=== PATIENT | female | born 1970 | race Caucasian/White ===

== ENCOUNTER → 2017-07-21 | Outpatient (CLI) | payer OTHER ==
[~2017-07-21] VITALS: Ht 162.6 cm; Wt 86.3 kg
[~2017-07-21] MED LIST: ACTIGALL300 MG PO; ALEVE220 MG PO; BENEFIBER1 G1 PO; CARAFATE 11 GM/10 M1; CIPROFLOXACIN500 M1 PO; COLACE100 MG PO; COMPRO25 MG RC; CREON DR 24,001 EACH PO; CYMBALTA30 MG PO; CYMBALTA60 MG PO; DICYCLOMINE HCL20 MG PO; DONNATAL EXTEN1 EACH PO; HYDROCODON-ACE1 EAC5 PO; HYDROCODON-ACE1 EAC7 PO; HYDROCODONE-AP1 EAC6 PO; IRON PO; LINZESS145 MCG PO; LIORESAL 10 MG10 MG PO; MULTIVITAMINS PO; NEXIUM40 MG PO; NORTRIPTYLINE H25 M3 PO; NORTRIPTYLINE H50 M3 PO; NORTRIPTYLINE H50 MG PO; NORTRIPTYLINE H75 M1 PO; OMEPRAZOLE40 MG PO; OXYCODONE HCL5 M1 PO; POTASSIUM GLUC500 MG PO; POTASSIUM GLUCONATE PO; PREVACID 30MG C30 M1 PO; PROMETHAZINE12.5 M1 PO; PROMETHAZINE12.5 M2 RE; RANITIDINE 150150 MG PO; RANITIDINE HCL300 M1 PO; REGLAN 10 MG TA10 MG PO; TRAMADOL 50 MG50 MG PO; TRAZODONE HCL100 MG PO; ZANTAC 150MG T150 MG PO; ZOFRAN8 MG PO; [UNRECOGNIZED DRUG - OTHER] MC
--- NOTE | ~2017-07-21 | HPC ---
[facility] [place] [address] PAIN MANAGEMENT CONSULTATION Name: STANLEY PADILLA Room #: REG [facility] Darrick.#: [id number] Admission: 07/21/17 Attend Phys: Amaury Breaux MD Discharge: Date of : 70 Report #: [id number] THIS REPORT FOR: //name// CC: Chucky Breaux DATE OF SERVICE: 07/21/2017 Followup visit for medication management of chronic abdominal pain with pancreatitis. The patient takes tramadol 50 mg 4 times daily for pain. She says her primary care physician will no longer prescribe it because it is an opioid. Tramadol as the Schedule III opioid does not even calculate on a morphine milligram equivalency scale. It is potentially a drug of misuse and abuse; however, the patient has been taking it cautiously and carefully and provides relief for her abdominal pain and also for low back pain that she has intermittently with radiculopathy. She denies any particular side effects from this. She has recently been in [place] where she was under treatment for pancreatitis. She had 2 stents placed. Typically after ERCP, pain is aggravated and it has been in the patient's condition. I reviewed with her medication and its actions. I talked about safeguarding medication carefully and using it under instructions provided by our clinic. In reviewing her previous prescriptions on drug monitoring program, it states that she was given 2 prescriptions for hydrocodone by the physicians in [place]. The number of pills, however, was small, no more than 15 to 20 following the procedure. They recommended that she be seen back in the clinic by her pain specialists. PHYSICAL EXAMINATION: GENERAL: She is pleasant, alert and oriented. VITAL SIGNS: Her BMI is 32.6 and she has lost weight since I last saw her. Her blood pressure is 133/89, heart rate 94. ABDOMEN: She has tenderness across her abdomen. IMPRESSION: 1. Chronic pancreatitis. 2. Management of tramadol under terms of an agreement. [address] [address] PAIN MANAGEMENT CONSULTATION Name: STANLEY PADILLA Room #: REG [facility].#: [id number] Admission: 07/21/17 Attend Phys: Amaury Breaux MD Discharge: Date of : 70 Report #: [id number] Follow up in the pain clinic in one month. Prescription was written for 120 tablets. By: [id number] Amaury Breaux MD /nt
[2017-07-21 13:06] VITALS: BP 133/89
== END ==
LOC: PAIN 06:57
DX: K86.1 Other chronic pancreatitis (principal); Z79.899 Other long term (current) drug therapy

== ENCOUNTER → 2018-04-17 | Outpatient (CLI) | payer OTHER ==
[~2018-04-17] VITALS: Ht 162.6 cm; Wt 86.5 kg
[~2018-04-17] MED LIST changes: +KEFLEX500 M1 PO
--- NOTE | ~2018-04-17 | HPC ---
[facility] [place] [address] PAIN MANAGEMENT CONSULTATION Name: STANLEY PADILLA Room #: REG [facility] M.R.#: [id number] Admission: 04/17/18 ������������������ Attend Phys: Amaury Breaux MD Discharge: ������������������ Date of : 70 Report #: [id number] THIS REPORT FOR: //name// CC: Chucky Breaux DATE OF SERVICE: 04/17/2018 Followup visit for chronic abdominal pain with recurring pancreatitis. HISTORY OF PRESENT ILLNESS: The patient is here today in followup for medication management of her chronic abdominal pain. She has had a recent flareup. She does not know if it was dietary or other stress that triggered her episode, but it was severe enough to take her to the hospital for 3 nights. While in the hospital, she was treated with IV morphine, which she said was helpful, although it is listed as an allergy on her chart. She tolerated the treatment and was able to be discharged and is here today to renew her tramadol, which she takes on a chronic basis for management. Her tramadol is 50 mg tablets taken 4 times daily, without side effects. She has an opioid agreement; we reviewed the terms of that agreement. She will carefully safeguard her medication. She denies side effects. Tramadol may actually slower her stool just a bit and has a favorable benefit in that regard. PQRS: PQRS is reviewed. She has no history of osteoarthritis. Her pain intensity is 5/10. She is not a fall risk, but she did fall a month ago on the ice, sustaining some bruising, but no serious injuries; she has recovered. She is on no blood thinners nor does she take medication for hypertension. She is on an opioid agreement and we have completed an opioid risk tool, which shows she is at low risk for addiction. She denies use of tobacco or alcohol. PHYSICAL EXAMINATION: VITAL SIGNS: She is 5 feet 4 inches, 190 pounds. Blood pressure is 130/96, heart rate is 80. BMI is 32.7. ABDOMEN: Mildly tender. Bowel sounds are present. IMPRESSION: 1. Chronic abdominal pain with recurrent chronic pancreatitis. 2. Management of tramadol under terms of written opioid agreement. PLAN: I have renewed her medication for 3 months. Importance of safeguarding all medications was reviewed and discussed. [address] [address] PAIN MANAGEMENT CONSULTATION Name: STANLEY PADILLA [id number] Admission: 04/17/18 ������������������ Attend Phys: Amaury Breaux MD Discharge: ������������������ Date of : 70 Report #: [id number] A followup visit is scheduled for her in 3 months. ��������������������������������������������� ���������������������������������������� By: ��������������������������������������������� [id number] [id number] Amaury Breaux MD /nt
[2018-04-17 09:07] VITALS: BP 130/96
--- NOTE | 2018-04-17 09:07 | NUR ---
Pain Clinic Assessment: 1. History of Osteoarthritis: Not Applicable History of Rheumatoid Arthritis: Not Applicable 2. Height: 5 ft. 4 in. 162.6 cm. Weight: 190.8 lb. oz. 86.546 kg. Patient's BMI: 32.7 3. Vital Signs: BP: 130/96 Pulse: 80 Resp: 18 Temp: 02 Sat: 99 ECG Mon: 4. Pain Intensity: 5 5. Fall Risk: Dizziness: N Needs help standing or walking: N Fallen in the last 3 months: Y Fall risk comments: FELL ON ICE A FEW MONTHS AGO 6. Patient on Blood Thinner: None 7. History of Hypertension: N 8. Opioid Therapy greater than 6 weeks: Y Opiate Contract Signed: 09/13/11 9. Risk Assessment Tool Provided: 0-LOW 10. Functional Assessment Tool: 11. Recreational Drug Use: Never Drug Type: Tobacco Use: Never Smoker Tobacco Type: Amount or Packs/day: How Many Years: Alcohol Use: No Frequency: Quant:
== END ==
LOC: PAIN 07:05
DX: R10.9 Unspecified abdominal pain (principal); G89.29 Other chronic pain; K86.1 Other chronic pancreatitis; Z79.899 Other long term (current) drug therapy

== ENCOUNTER → 2018-07-25 | Outpatient (CLI) | payer OTHER ==
[~2018-07-25] VITALS: Ht 162.6 cm; Wt 88.9 kg
[2018-07-25 08:05] VITALS: BP 141/97
--- NOTE | 2018-07-25 08:08 | NUR ---
Pain Clinic Assessment: 1. History of Osteoarthritis: Not Applicable History of Rheumatoid Arthritis: Not Applicable 2. Height: 5 ft. 4 in. 162.6 cm. Weight: 196.0 lb. oz. 88.905 kg. Patient's BMI: 33.6 3. Vital Signs: BP: 141/97 Pulse: 93 Resp: 16 Temp: 02 Sat: 98 ECG Mon: 4. Pain Intensity: 3 5. Fall Risk: Dizziness: N Needs help standing or walking: N Fallen in the last 3 months: N Fall risk comments: FELL ON ICE A FEW MONTHS AGO 6. Patient on Blood Thinner: None 7. History of Hypertension: N 8. Opioid Therapy greater than 6 weeks: Y Opiate Contract Signed: 09/13/11 9. Risk Assessment Tool Provided: 0-LOW 10. Functional Assessment Tool: 11. Recreational Drug Use: Never Drug Type: Tobacco Use: Never Smoker Tobacco Type: Amount or Packs/day: How Many Years: Alcohol Use: No Frequency: Quant:
--- NOTE | 2018-07-25 14:49 | HPC ---
[facility] [address] [place] [address] PAIN MANAGEMENT CONSULTATION Name: STANLEY PADILLA Room #: REG [facility] Darrick.#: [id number] Admission: 07/25/18 ������������������ Attend Phys: Olive Burnett Discharge: ������������������ Date of : 70 Report #: [id number] THIS REPORT FOR: //name// CC: Chucky Burnett DATE OF SERVICE: 07/25/2018 CHIEF COMPLAINT: Chronic abdominal pain with recurrent pancreatitis. HISTORY OF PRESENT ILLNESS: This is a very pleasant 47-year-old female who returns for medication management for her chronic abdominal pain. She tells me she has not had a flare in the past couple of weeks. She has been watching her diet very carefully. Some days, she does need to take more of her tramadol depending on flareups but she is able to get by with 2 usually but on flareup days, she needs at least 4 or more tramadol a day. She tells me that her pain scores of 3/10 today, mostly an achy burning in her abdomen on the right side that does radiate towards her back. Certain foods of course aggravated and bending over and the medication and stretching are very helpful. The patient also complains of significant heartburn and throat burning sensation today. She tells me that she is going to go see her primary care doctor. She feels like this has been getting worse despite taking omeprazole and Zantac on a daily basis. She feels that this also makes her eat less foods that do cause flareups because she has been having this ongoing issue. ALLERGIES: DILAUDID, MORPHINE, TOPAMAX and LEVAQUIN. CURRENT MEDICATIONS: Tramadol 50 mg p.r.n., trazodone 100 mg, omeprazole 40 mg, Zantac 150 mg b.i.d., potassium gluconate 500 mg daily, Linzess 145 mcg daily, Cymbalta 30 mg daily, naproxen p.r.n., multivitamin and Zofran p.r.n. PQRS: She has no history of osteoarthritis or rheumatoid arthritis. Height is 5 feet 4 inches, weight is 190 and BMI is 32. Vital signs: Blood pressure 141/97, pulse is 93, respirations 16 and oxygen sat is 98. Pain score is 3/10. Fall risk. Denies dizziness, does not need help walking or standing and has not fallen in the last 3 months. She is not on any blood thinners or hypertension medicines. Opioid therapy is greater than 6 weeks; therefore, an opioid signed contract is on the chart. Her risk assessment tool is low. Her functional assessment is 45/70. Recreational drug use, she denies. She is not a smoker and does not drink alcohol. We did check the prescription monitoring system. The patient is filling appropriately for her medications. There is a recent drug screen on the chart as well that is appropriate. [address] [address] PAIN MANAGEMENT CONSULTATION Name: STANLEY PADILLA Room #: REG [facility] John#: [id number] Admission: 07/25/18 ������������������ Attend Phys: Olive Burnett Discharge: ������������������ Date of : 70 Report #: [id number] PHYSICAL EXAMINATION: GENERAL: This is a well-developed, well-nourished 47-year-old female who appears her stated age. Placing her pain score today at 3/10. HEENT: Normocephalic and atraumatic. Extraocular muscles are intact. Mucous membranes are moist. Hearing is adequate. ABDOMEN: Mildly tender. Bowel sounds present. IMPRESSION: 1. Chronic abdominal pain with recurrent chronic pancreatitis. 2. Management of tramadol under terms of written opioid agreement. We reviewed the fact that opiate medications are being used to provide analgesia adequate to support activities of daily living, not attempting to achieve a specific pain score on the 0-10 Visual Analog Scale. The current opiate medications are providing sufficient analgesia to allow the patient to participate in activities of daily living. The patient is not exhibiting any aberrant behavior suggestive of drug diversion. The patient is not having any adverse reactions to medications. The patient is not suffering from daytime somnolence or mental acuity changes. The patient is managing opiate-induced constipation with appropriate mkfj-xci-ztkiozy agents and dietary considerations. The patient was counseled on concern for caution with operating a motor vehicle while using opiate medications. A physical exam was performed and the patient's functional status was evaluated. All patients with back pain were advised against the bed rest greater than 4 days and were advised to return to normal activities. Pain score assessment was noted and the treatment plan was reviewed with the patient. All current medications, both prescribed and OTC were reviewed and reconciled on the electronic medical record. Tobacco screening was accomplished and smoking cessation was advised when indicated. BMI was noted and diet/exercise modification was recommended for all patients following outside normal parameters. I reviewed with the patient today their responsibilities to safeguard prescription medications, reviewed their responsibility to utilize medications only as prescribed by the physician. They are to seek and receive pain medications only from 1 physician group ( [facility]). They are to use 1 pharmacy and keep the clinic informed if they change pharmacies. Their responsibilities include making followup visits in a timely fashion and to avoid abrupt discontinuation of medication usage. Their responsibilities further include bringing their medications (bottles from the pharmacy with residual pills) to the visit for possible confirmation of pill counts and the patient understands it is their responsibility to submit to random drug screens to ensure both that the medications prescribed are present, and that no other controlled substances are present. All prescriptions provided today were generated electronically. [facility] [address] [place] [address] PAIN MANAGEMENT CONSULTATION Name: STANLEY PADILLA Room #: REG [facility].#: [id number] Admission: 07/25/18 ������������������ Attend Phys: Olive Burnett Discharge: ������������������ Date of : 70 Report #: [id number] PLAN: 1. We discussed treatment options with the patient today. Refills of her tramadol 50 mg #120 with 2 additional refills were given. 2. We discussed the patient's blood pressure, it is elevated again today, 141/97 and the last few times she has been here, it has been elevated. I encouraged her that she was seeing her primary care doctor this afternoon to discuss her blood pressure. She tells me it is always high when she is in pain, though her pain score is low today and it continues to be high. I told her I do not want this to be an ongoing problem that ends up being too high that has potential for worse things as an example of stroke, so I encouraged her to talk to her primary care doctor today. 3. The patient is seen in collaboration today with Dr. Marcelo Gilliland. ��������������������������������������������� <ELECTRONICALLY SIGNED> ���������������������������������������� By: Olive Burnett ��������������������������������������������� 07/25/18 1449 [id number] Olive Burnett /becky
== END ==
LOC: PAIN 06:33
DX: K86.1 Other chronic pancreatitis (principal); Z79.899 Other long term (current) drug therapy

== ENCOUNTER → 2018-11-02 | Outpatient (CLI) | payer OTHER ==
[~2018-11-02] VITALS: Ht 162.6 cm; Wt 87.3 kg
[2018-11-02 09:36] VITALS: BP 122/91
--- NOTE | 2018-11-02 09:51 | NUR ---
Pain Clinic Assessment: 1. History of Osteoarthritis: Not Applicable History of Rheumatoid Arthritis: Not Applicable 2. Height: 5 ft. 4 in. 162.6 cm. Weight: 192.4 lb. oz. 87.272 kg. Patient's BMI: 33.0 3. Vital Signs: BP: 122/91 Pulse: 77 Resp: 14 Temp: 02 Sat: 97 ECG Mon: 4. Pain Intensity: 4 5. Fall Risk: Dizziness: N Needs help standing or walking: N Fallen in the last 3 months: N Fall risk comments: FELL ON ICE A FEW MONTHS AGO 6. Patient on Blood Thinner: None 7. History of Hypertension: N 8. Opioid Therapy greater than 6 weeks: Y Opiate Contract Signed: 09/13/11 9. Risk Assessment Tool Provided: 0-LOW 10. Functional Assessment Tool: 11. Recreational Drug Use: Never Drug Type: Tobacco Use: Never Smoker Tobacco Type: Amount or Packs/day: How Many Years: Alcohol Use: No Frequency: Quant:
--- NOTE | 2018-11-07 11:30 | HPC ---
[facility] [place] [address] PAIN MANAGEMENT CONSULTATION Name: STANLEY PADILLA Room #: REG [facility] M.Marielos.#: [id number] Admission: 11/02/18 ������������������ Attend Phys: Olive Burnett Discharge: ������������������ Date of : 70 Report #: [id number] THIS REPORT FOR: //name// CC: Chucky Burnett DATE OF SERVICE: 11/02/2018 CHIEF COMPLAINT: Chronic abdominal pain with recurrent pancreatitis. HISTORY OF PRESENT ILLNESS: This is a very pleasant 48-year-old female who returns to the pain clinic today for refills of her medication. She does report that she was recently hospitalized for a colon infection. She was discharged on Tuesday, her pancreatitis did flare when she was in the hospital. She continues to have some ongoing pain, rating at a 4/10 today due to this recent flare, pain is located across her entire abdomen and radiates all the way into her back. She is slowly resuming her normal diet, but eating still does makes her pain worse as well as bending. She has been taking her tramadol for her pain and finds this very beneficial. The patient does tell me that she does have problems with constipation. She has irritable bowel as well as her pancreatitis which affect her bowel pattern. She takes Linzess, MiraLax and stool softeners. ALLERGIES: DILAUDID, MORPHINE, TOPAMAX, AND LEVAQUIN. CURRENT LIST OF MEDICATIONS: Tramadol 50 mg up to 4 times a day p.r.n., trazodone 100 mg at bedtime, omeprazole 40 mg daily, Zantac 150 mg daily, potassium, Linzess, Cymbalta, naproxen, multivitamin and Zofran. PQRS: 1. She does not have a history of osteoarthritis or rheumatoid arthritis. 2. Height is 5 feet 4 inches, weight is 192, BMI is 33. 3. Vital signs: 122/91, pulse is 77, respirations 14, oxygen sat is 97. 4. Pain score is 4/10. 5. Denies dizziness. Does not need help walking or standing, has not fallen in the last 3 months. 6. The patient is not on any blood thinners or hypertension medicines. 7. Opioid therapy is greater than 6 weeks; therefore, an opiate signed contract is on the chart. 8. Risk assessment tool is low. Functional assessment is 45/70. 9. Recreational drug use, she denies. She is not a smoker and does not drink alcohol. According to the prescription monitoring system, the patient is filling appropriately for her medications, filling them in a timely fashion. She is due for those medications today. There is a recent drug screen [place] [address] PAIN MANAGEMENT CONSULTATION Name: STANLEY PADILLA Room #: REG [facility] John#: [id number] Admission: 11/02/18 ������������������ Attend Phys: Olive Burnett Discharge: ������������������ Date of : 70 Report #: [id number] will recheck that in the next visit as well, as it will be greater than a year at that time. IMPRESSION: 1. Chronic abdominal pain with recurrent pancreatitis. 2. Management of tramadol under written opioid agreement. We reviewed the fact that opiate medications are being used to provide analgesia adequate to support activities of daily living, not attempting to achieve a specific pain score on the 0-10 Visual Analog Scale. The current opiate medications are providing sufficient analgesia to allow the patient to participate in activities of daily living. The patient is not exhibiting any aberrant behavior suggestive of drug diversion. The patient is not having any adverse reactions to medications. The patient is not suffering from daytime somnolence or mental acuity changes. The patient is managing opiate-induced constipation with appropriate luuh-dxu-cvobmei agents and dietary considerations. The patient was counseled on concern for caution with operating a motor vehicle while using opiate medications. A physical exam was performed and the patient's functional status was evaluated. All patients with back pain were advised against the bed rest greater than 4 days and were advised to return to normal activities. Pain score assessment was noted and the treatment plan was reviewed with the patient. All current medications, both prescribed and OTC were reviewed and reconciled on the electronic medical record. Tobacco screening was accomplished and smoking cessation was advised when indicated. BMI was noted and diet/exercise modification was recommended for all patients following outside normal parameters. I reviewed with the patient today their responsibilities to safeguard prescription medications, reviewed their responsibility to utilize medications only as prescribed by the physician. They are to seek and receive pain medications only from 1 physician group ( [facility]). They are to use 1 pharmacy and keep the clinic informed if they change pharmacies. Their responsibilities include making followup visits in a timely fashion and to avoid abrupt discontinuation of medication usage. Their responsibilities further include bringing their medications (bottles from the pharmacy with residual pills) to the visit for possible confirmation of pill counts and the patient understands it is their responsibility to submit to random drug screens to ensure both that the medications prescribed are present, and that no other controlled substances are present. All prescriptions provided today were generated electronically. PLAN: 1. We discussed treatment options with the patient today. The patient is doing well on her tramadol and would like refills, scripts given for 50 mg #120 with 2 [facility] [address] [place] [address] PAIN MANAGEMENT CONSULTATION Name: STANLEY PADILLA Room #: REG [facility].#: [id number] Admission: 11/02/18 ������������������ Attend Phys: Olive Burnett Discharge: ������������������ Date of : 70 Report #: [id number] additional refills. This is a total of 3 months of medications. 2. We did discuss her ongoing pancreatitis and recent colon issues. She reports she is having a colonoscopy soon and then will be traveling to [place] for an ultrasound of her pancreas. She is waiting to have all of her studies here and the doctors speak with those specialists before she schedules her appointment. 3. The patient is seen by Dr. Amaury Breaux, who collaborated care. She will return in 3 months for an office visit. ��������������������������������������������� <ELECTRONICALLY SIGNED> ���������������������������������������� By: Olive Burnett ��������������������������������������������� 11/07/18 1130 1152 [id number] Olive Burnett /becky
== END ==
LOC: PAIN 06:47
DX: R10.9 Unspecified abdominal pain (principal); G89.29 Other chronic pain; K86.1 Other chronic pancreatitis; Z88.8 Allergy status to other drugs, medicaments and biological substances; Z79.899 Other long term (current) drug therapy

== ENCOUNTER → 2019-02-01 | Outpatient (CLI) | payer OTHER ==
[~2019-02-01] VITALS: Ht 162.6 cm; Wt 86.6 kg
[2019-02-01 10:14] VITALS: BP 131/93
--- NOTE | 2019-02-01 10:30 | NUR ---
Pain Clinic Assessment: 1. History of Osteoarthritis: Not Applicable History of Rheumatoid Arthritis: Not Applicable 2. Height: 5 ft. 4 in. 162.6 cm. Weight: 191.0 lb. oz. 86.637 kg. Patient's BMI: 32.8 3. Vital Signs: BP: 131/93 Pulse: 74 Resp: 14 Temp: 02 Sat: 97 ECG Mon: 4. Pain Intensity: 4 5. Fall Risk: Dizziness: N Needs help standing or walking: N Fallen in the last 3 months: N Fall risk comments: FELL ON ICE A FEW MONTHS AGO 6. Patient on Blood Thinner: None 7. History of Hypertension: N 8. Opioid Therapy greater than 6 weeks: Y Opiate Contract Signed: 09/13/11 9. Risk Assessment Tool Provided: 0-LOW 10. Functional Assessment Tool: 11. Recreational Drug Use: Never Drug Type: Tobacco Use: Never Smoker Tobacco Type: Amount or Packs/day: How Many Years: Alcohol Use: No Frequency: Quant:
--- NOTE | 2019-02-01 13:52 | HPC ---
[facility] [place] [address] PAIN MANAGEMENT CONSULTATION Name: STANLEY PADILLA Room #: REG [place].#: [id number] Admission: 02/01/19 Attend Phys: Olive Burnett Discharge: Date of : 70 Report #: [id number] THIS REPORT FOR: //name// CC: Chucky Evans DO Olive Breaux MD DATE OF SERVICE: 02/01/2019 CHIEF COMPLAINT: Chronic abdominal pain related to pancreatitis. HISTORY OF PRESENT ILLNESS: This is a very pleasant 48-year-old female who returns to the pain clinic today for refill of her tramadol. She uses this when she does have pancreatic flares which she recently had in December, was hospitalized for greater than a week. She said that her pain has subsided though she did have a rough night last night. She does take her tramadol as needed for these flares. Today, she is rating a pain score of 4/10. It is an aching, burning pain. She feels the tramadol is very beneficial. She reports she is going to [place] back to see her gastrointestinal doctor there. She will have an ultrasound and a scope. It seems like her appointment may not be until March. She is awaiting confirmation on her exact dates. The patient denies any problems with constipation or daytime somnolence from her medication. She reports she is quite active and busy. They are in the process of selling their house and buying some land. She will be living in an throughout the winter where they are building this new property. She is very excited about this opportunity to move to [facility] and have some land to live on. ALLERGIES: DILAUDID, MORPHINE, TOPAMAX AND LEVAQUIN. CURRENT LIST OF MEDICATIONS: Tramadol 50 mg q.i.d. p.r.n., trazodone, omeprazole, Zantac, potassium, Linzess, Cymbalta, multivitamin and Zofran. PQRS: 1. She does not have a history of osteo or rheumatoid arthritis. 2. Height is 5 feet 4 inches, weight is 191, BMI is 32. 3. Vital signs; 131/93, pulse is 74, respirations 14, oxygen sat is 97. 4. Pain score is 4/10. 5. Denies dizziness, does not need help walking or standing, has not fallen in the last 3 months. 6. The patient is not on any blood thinners or medicine for hypertension. 7. Opioid therapy is greater than 6 weeks; therefore, an opioid signed contract is on the chart. Risk assessment tool is low. Functional assessment is 45/70. 8. Recreational drug use, she denies. She is not a smoker [place] [address] PAIN MANAGEMENT CONSULTATION Name: STANLEY PADILLA Room #: REG [facility] John#: [id number] Admission: 02/01/19 Attend Phys: Olive Burnett Discharge: Date of : 70 Report #: [id number] alcohol. According to the prescription monitoring system, the patient is filling appropriately. She is due to fill her medications today. Her current morphine mEq is 20 MME per day, well below the CDC guidelines. We will check a random drug screen on this patient today as well. The patient reports her last dose was this morning. IMPRESSION: 1. Chronic abdominal pain with recurrent pancreatitis. 2. Management of opioids under written agreement. PHYSICAL EXAMINATION: GENERAL: This is alert and orientated 48-year-old female who appears her stated age, placing her current pain score at 4/10. HEENT: Normocephalic, atraumatic. Pupils equal, round and reactive. She has mucous membranes are moist. ABDOMEN: Tender in the upper quadrants. Bowel sounds are present. PLAN: 1. We discussed treatment options with the patient today. The patient finds the tramadol beneficial in helping when she does have episodes of her pancreatitis. She does use those appropriately filling in a time frame. She keeps as active as she is able with her medications, giving her sufficient analgesic responses. We will refill her tramadol 50 mg, #120 for today and 2 additional refills for a total of [address] Amaury Breaux did see the patient as well today and will send these electronically to the drug store in [place]. Dr Breaux collaborated care today. 2. The patient will report back to us after she has seen her gastrointestinal doctor in [place] with those results of that visit. 3. We did discuss if the patient is moving to [place], [place] if she would like to try and find a primary care doctor closer to where she will be living in the future. We will send records, so she does not have to travel back here. The patient may decide to continue care here with us. <ELECTRONICALLY SIGNED> By: Olive Burnett 02/01/19 1352 [id number] Olive Burnett /nt
== END ==
LOC: PAIN 06:57
DX: R10.9 Unspecified abdominal pain (principal)

== ENCOUNTER → 2019-04-30 | Outpatient (CLI) | payer OTHER ==
[~2019-04-30] VITALS: Ht 162.6 cm; Wt 86.3 kg
[2019-04-30 08:49] VITALS: BP 161/97
--- NOTE | 2019-04-30 08:59 | NUR ---
Pain Clinic Assessment: 1. History of Osteoarthritis: NONE History of Rheumatoid Arthritis: DENIES 2. Height: 5 ft. 4 in. 162.6 cm. Weight: 190.2 lb. oz. 86.274 kg. Patient's BMI: 32.6 3. Vital Signs: BP: 161/97 Pulse: 84 Resp: 14 Temp: 02 Sat: 99 ECG Mon: 4. Pain Intensity: 5 5. Fall Risk: Dizziness: N Needs help standing or walking: N Fallen in the last 3 months: N Fall risk comments: FELL ON ICE A FEW MONTHS AGO 6. Patient on Blood Thinner: None 7. History of Hypertension: N 8. Opioid Therapy greater than 6 weeks: Y Opiate Contract Signed: 09/13/11 9. Risk Assessment Tool Provided: 0-LOW 10. Functional Assessment Tool: 11. Recreational Drug Use: Never Drug Type: Tobacco Use: Never Smoker Tobacco Type: Amount or Packs/day: How Many Years: Alcohol Use: No Frequency: Quant:
--- NOTE | 2019-05-01 08:27 | HPC ---
[facility] [place] [address] PAIN MANAGEMENT CONSULTATION Name: STANLEY PADILLA Room #: REG [facility] Darrick.#: [id number] Admission: 04/30/19 Attend Phys: Olive Burnett Discharge: Date of : 70 Report #: [id number] THIS REPORT FOR: cc: Chucky Evans,Olive Marcos ~ CC: Chucky Burnett DATE OF SERVICE: 04/30/2019 CHIEF COMPLAINT: Chronic abdominal pain related to pancreatitis. HISTORY OF PRESENT ILLNESS: This is a very pleasant 48-year-old female who returns to the pain clinic today for refill of her medications. She is reporting a pain score of 5/10 today. It is in her upper abdomen that radiates into her back due to her chronic pancreatitis. Son reports that she has recently been to [facility] and had an ERCP performed. She then required hospitalization due to pancreatitis that was flared after the procedure. Was hospitalized at [facility] for 1 week. She states that now she is slightly better, but still having problems with constipation and increased abdominal pain. She is due to have her temporary stent replaced in early May. The patient reports a burning, aching pain, stating it is 5/10 today. It is worse with eating and bending, but her medications have been beneficial. She does report that she did not receive any medications after her ERCP and she was having significant increased pain, but did not want to void her contract with us by taking a prescription from another doctor. ALLERGIES: DILAUDID, MORPHINE, TOPAMAX, AND LEVAQUIN. CURRENT LIST OF MEDICATIONS: Tramadol 50 mg q.i.d., trazodone 100 mg at bedtime, omeprazole, Zantac, potassium, Linzess, duloxetine, multivitamin, and Zofran. PATIENT'S PQRS: 1. She does not have a history of osteoarthritis or rheumatoid arthritis. 2. Height is 5 feet 4 inches, weight is 190, BMI is 32. 3. Vital signs 160/97, pulse is 84, respirations 14, oxygen sat is 99. 4. Pain score is 5/10. 5. Denies dizziness, does not need help walking or standing, has not fallen in the last 3 months. 6. The patient is not on blood thinners or medicine for hypertension. Her opioid therapy is greater than 6 weeks. Therefore, an opioid signed contract is on the chart. Her risk assessment tool is low. Functional assessment is 45/70 [place] [address] PAIN MANAGEMENT CONSULTATION Name: STANLEY PADILLA Room #: REG [facility] Dora#: [id number] Admission: 04/30/19 Attend Phys: Olive Burnett Discharge: Date of : 70 Report #: [id number] every time. Recreational drug use, she denies. She is not a smoker and does not drink alcohol. According to the prescription monitoring system, the patient is filling appropriately for her medications in a timely fashion. According to the CDC guidelines, her morphine mEq is 20 MME per day. There is a recent drug screen on the chart that is appropriate as well. PHYSICAL EXAMINATION: GENERAL: This is alert and orientated 48-year-old female who appears her stated age placing her current pain score at 5/10 today. HEENT: Normocephalic, atraumatic. Extraocular eye muscles are intact. Mucous membranes are moist. ABDOMEN: She has tenderness in her left upper quadrant that radiates into her back. She has active bowel sounds. IMPRESSION: 1. Chronic abdominal pain with recurrent pancreatitis. 2. Recent endoscopic retrograde cholangiopancreatography with stent placement. 3. Management of opioids under written agreement. We reviewed the fact that opiate medications are being used to provide analgesia adequate to support activities of daily living, not attempting to achieve a specific pain score on the 0-10 Visual Analog Scale. The current opiate medications are providing sufficient analgesia to allow the patient to participate in activities of daily living. The patient is not exhibiting any aberrant behavior suggestive of drug diversion. The patient is not having any adverse reactions to medications. The patient is not suffering from daytime somnolence or mental acuity changes. The patient is managing opiate-induced constipation with appropriate [id number] agents and dietary considerations. The patient was counseled on concern for caution with operating a motor vehicle while using opiate medications. A physical exam was performed and the patient's functional status was evaluated. All patients with back pain were advised against the bed rest greater than 4 days and were advised to return to normal activities. Pain score assessment was noted and the treatment plan was reviewed with the patient. All current medications, both prescribed and OTC were reviewed and reconciled on the electronic medical record. Tobacco screening was accomplished and smoking cessation was advised when indicated. BMI was noted and diet/exercise modification was recommended for all patients following outside normal parameters. I reviewed with the patient today their responsibilities to safeguard prescription medications, reviewed their responsibility to utilize medications only as prescribed by the physician. They are to seek and receive pain [address] [address] PAIN MANAGEMENT CONSULTATION Name: STANLEY PADILLA Room #: REG [facility] John#: [id number] Admission: 04/30/19 Attend Phys: Olive Burnett Discharge: Date of : 70 Report #: [id number] medications only from 1 physician group ( [facility]). They are to use 1 pharmacy and keep the clinic informed if they change pharmacies. Their responsibilities include making followup visits in a timely fashion and to avoid abrupt discontinuation of medication usage. Their responsibilities further include bringing their medications (bottles from the pharmacy with residual pills) to the visit for possible confirmation of pill counts and the patient understands it is their responsibility to submit to random drug screens to ensure both that the medications prescribed are present, and that no other controlled substances are present. All prescriptions provided today were generated electronically. PLAN: 1. We discussed treatment options with the patient today. I explained to the patient we do not want her to be in increased pain following surgical procedures. We asked that if she does receive a short prescription of a medication that she call our office and maybe that the tramadol is not effective following these procedures and our goal is not for her to have increased pain. She may fill it and call our office. We will document it and that will not void her contract. The patient verbalizes understanding. She is happy to know that. She went through several rough days of increased pain after her recent hospitalization and ERCP. 2. We will refill her tramadol 50 mg #120 with 2 additional refills. This will be sent electronically to the pharmacy by Dr. Amaury Breaux. 3. The patient will return in 3 months for medication management. The patient is seen today in collaboration with Dr. Amaury Breaux. <ELECTRONICALLY SIGNED> By: Olive Burnett 05/01/19 0827 [id number] Olive Burnett /nt
== END ==
LOC: PAIN 06:42
DX: K85.90 Acute pancreatitis without necrosis or infection, unspecified (principal)

== ENCOUNTER → 2019-07-30 | Outpatient (CLI) | payer OTHER ==
[~2019-07-30] VITALS: Ht 162.6 cm; Wt 86.0 kg
[2019-07-30 08:18] VITALS: BP 130/79
--- NOTE | 2019-07-30 08:25 | NUR ---
Pain Clinic Assessment: 1. History of Osteoarthritis: NONE History of Rheumatoid Arthritis: DENIES 2. Height: 5 ft. 4 in. 162.6 cm. Weight: 189.6 lb. oz. 86.002 kg. Patient's BMI: 32.5 3. Vital Signs: BP: 130/79 Pulse: 72 Resp: 18 Temp: 02 Sat: 100 ECG Mon: 4. Pain Intensity: 3 5. Fall Risk: Dizziness: N Needs help standing or walking: N Fallen in the last 3 months: N Fall risk comments: FELL ON ICE A FEW MONTHS AGO 6. Patient on Blood Thinner: None 7. History of Hypertension: N 8. Opioid Therapy greater than 6 weeks: Y Opiate Contract Signed: 09/13/11 9. Risk Assessment Tool Provided: 0-LOW 10. Functional Assessment Tool: 11. Recreational Drug Use: Never Drug Type: Tobacco Use: Never Smoker Tobacco Type: Amount or Packs/day: How Many Years: Alcohol Use: No Frequency: Quant:
--- NOTE | 2019-07-31 07:44 | HPC ---
[facility] [place] [address] PAIN MANAGEMENT CONSULTATION Name: STANLEY PADILLA Room #: REG [facility].#: [id number] Admission: 07/30/19 Attend Phys: Olive Burnett Discharge: Date of : 70 Report #: [id number] THIS REPORT FOR: cc: Chucky Evans Ahmad W. DO Hocker, Amanda CNS ~ CC: Amaury Breaux MD DATE OF SERVICE: 07/30/2019 CHIEF COMPLAINT: Chronic abdominal pain related to pancreatitis. HISTORY OF PRESENT ILLNESS: This is a very pleasant 48-year-old female who returns to the pain clinic today for a refill of her tramadol. She does report that she was able to have her stents placed in [place] in her pancreatic bile duct. She needs to have them replaced after 3 months that she is hopeful to have that done locally. About a week after the hospitalization, she was having increased pain and was admitted to the [facility] where she reports her liver enzymes were very elevated. She is unsure at this time if it was related to the new stent she had placed. Her pain was increased significantly during that time. Upon discharge from the hospital, she received a script for OxyContin ER 15 mg for 60 tablets. The patient was taking them though she reported they were not the same medication as prescribed according to the paperwork she received at discharge. Currently, she is out of that medication and is now requesting refills of her tramadol. She states that her pain has finally decreased rating at a 3/10 today, located in her upper abdominal area that radiates to her back stating it is a burning, aching feeling, worse with eating. Currently, she is being very cautious of her diet, eating only chicken as far as meat or clear liquids. The patient is reporting that she has been having some diarrhea since her hospitalization after eating. She is unsure if that is related to this new stent placement, but does have a call into her specialist regarding this. ALLERGIES: DILAUDID, MORPHINE, TOPAMAX and LEVAQUIN. CURRENT LIST OF MEDICATIONS: Tramadol 50 mg q.i.d. p.r.n., trazodone, omeprazole, potassium, Linzess, Cymbalta, multivitamin and Zofran. PQRS: 1. She denies any osteoarthritis or rheumatoid arthritis. 2. Height is 5 feet 4 inches, weight is 189, BMI is 32. Vital signs 130/79, pulse is 72, respirations 18, oxygen sat is 100, pain score is 3/10. 3. Fall risk. Denies dizziness, does not need help walking or standing, has not fallen in the last 3 months. She is not on any [place] [address] PAIN MANAGEMENT CONSULTATION Name: STANLEY PADILLA Room #: REG [facility] Darrick.#: [id number] Admission: 07/30/19 Attend Phys: Olive Burnett Discharge: Date of : 70 Report #: [id number] for hypertension. 4. Opioid therapy is greater than 6 weeks; therefore, an opioid signed contract is on the chart. Risk assessment is low. Functional assessment is 45/70. 5. Recreational drug use, she denies. She is not a smoker and does not drink alcohol. According to the prescription monitoring system, the patient is due to fill her tramadol. There is the one prescription fill from OxyContin ER that the patient did report and bring her bottle with her today. According to the CDC guidelines, her morphine mEq per day is 20 MMEs. There is a random drug screen on the chart that is appropriate as well. PHYSICAL EXAMINATION: GENERAL: This is a well-developed, well-nourished, alert and orientated 48-year-old female who is a good historian, placing her pain score 5/10. HEENT: Normocephalic, atraumatic. Extraocular eye muscles are intact. She is wearing a mask. ABDOMEN: She has tenderness in the left upper quadrant that radiates into her back. Bowel sounds are present, slightly hyperactive. IMPRESSION: 1. Chronic abdominal pain with recurrent chronic pancreatitis. 2. Management of tramadol under written opioid agreement. 3. Recent endoscopy retrograde choleopancreatography with stent placement. PLAN: 1. We discussed treatment options with the patient today. The patient does report during the hospitalization was given OxyContin. She had been cutting these in half. I explained to her that those were long-acting medications and they are not to be crushed or cut. The patient was unaware of that. She thought they were short-acting medication according to the discharge paperwork that she was given. I encouraged her to take the bottle to the pharmacy to verify what script they actually was written compared to what she was actually given. The patient is now out of that medication and is no longer taking it. She is resumed taking her tramadol 50 mg 4 times a day, which we will send electronically by Dr. Amaury Breaux today for #120 with 2 additional refills. 2. The patient continues to have some ongoing diarrhea since her hospitalizations. I encouraged her to call her primary care doctor or her retail pricing coordinator to make them aware of this. The patient reports she does not have any foul smell, as I was concerned about Clostridium difficile. 3. The patient's care was given in collaboration with Dr. Amaury Breaux today. <ELECTRONICALLY SIGNED> By: Olive Burnett 07/31/19 0744 [id number] Olive Burnett /nt
== END ==
LOC: PAIN 06:46
PROVIDERS: ATTEND Clinical Nurse Specialist Adult Health
DX: K85.90 Acute pancreatitis without necrosis or infection, unspecified (principal); R10.9 Unspecified abdominal pain; F11.20 Opioid dependence, uncomplicated; Z88.8 Allergy status to other drugs, medicaments and biological substances; Z79.899 Other long term (current) drug therapy

== ENCOUNTER → 2019-10-29 | Outpatient (CLI) | payer OTHER ==
[~2019-10-29] VITALS: Ht 162.6 cm; Wt 85.7 kg
[2019-10-29 12:37] VITALS: BP 144/83
--- NOTE | 2019-10-29 12:44 | NUR ---
Pain Clinic Assessment: 1. History of Osteoarthritis: NONE History of Rheumatoid Arthritis: DENIES 2. Height: 5 ft. 4 in. 162.6 cm. Weight: 189.0 lb. oz. 85.730 kg. Patient's BMI: 32.4 3. Vital Signs: BP: 144/83 Pulse: 75 Resp: 16 Temp: 02 Sat: 97 ECG Mon: 4. Pain Intensity: 3 5. Fall Risk: Dizziness: N Needs help standing or walking: N Fallen in the last 3 months: N Fall risk comments: FELL ON ICE A FEW MONTHS AGO 6. Patient on Blood Thinner: None 7. History of Hypertension: N 8. Opioid Therapy greater than 6 weeks: Y Opiate Contract Signed: 09/13/11 9. Risk Assessment Tool Provided: 2-LOW 10. Functional Assessment Tool: 11. Recreational Drug Use: Never Drug Type: Tobacco Use: Never Smoker Tobacco Type: Amount or Packs/day: How Many Years: Alcohol Use: No Frequency: Quant:
--- NOTE | 2019-10-30 13:05 | HPC ---
[facility] [place] [address] PAIN MANAGEMENT CONSULTATION Name: STANLEY PADILLA Room #: REG [facility] Darrick.#: [id number] Admission: 10/29/19 Attend Phys: Olive Burnett Discharge: Date of : 70 Report #: [id number] THIS REPORT FOR: cc: Chucky Evans Ahmad W. DO Hocker, Amanda CNS ~ CC: Amaury Breaux MD DATE OF SERVICE: 10/29/2019 CHIEF COMPLAINT: Chronic abdominal pain related to pancreatitis. HISTORY OF PRESENT ILLNESS: This is a very pleasant 49-year-old female who returns to the pain clinic today for refill of her medications that she uses to help treat her ongoing pancreatitis issues. She recently had another procedure to place stents at [facility] in her pancreas, which did cause her to have a bout of pancreatitis again. She was in the hospital for several days. She states still to this day she has been having difficulty eating foods, someday she will have a good day and able to eat normally and then the next day she is very sick She reports that she will be having an MRCP in November to see when she is able to have the stents removed. They are hopeful to do that by the end of November. Today, the patient is complaining of a pain score of 3/10 despite having some increased abdominal pain. She states it is a chronic burning pain, especially when eating, though she feels the medication has been beneficial. She did receive a small script after her hospitalization that she did take a few of her oxycodone 5 mg, but felt that they were too strong for her and did not sit well in her stomach. She has them in her lock box at home presently. She did call and report that she received this prescription to us. ALLERGIES: HYDROMORPHONE, MORPHINE, TOPAMAX, AND LEVAQUIN. CURRENT LIST OF MEDICATIONS: Patient's medication Tramadol 50 mg q.i.d. p.r.n., trazodone, omeprazole, potassium, Linzess, Cymbalta, multivitamin and Zofran. PQRS: 1. She denies any osteo or rheumatoid arthritis. 2. Height is 5 feet 4 inches, weight is 189, BMI is 32. 3. Vital signs; blood pressure 144/83, pulse is 75, respirations 16, oxygen sat is 97%. 4. Pain score is 3/10. 5. Fall risk. Denies dizziness, does not need help walking or standing, has not fallen in the last 3 months. The patient is not on any blood thinners or medicine for hypertension. 6. Her opioid therapy is greater than 6 weeks; therefore, an opioid signed [address] [address] PAIN MANAGEMENT CONSULTATION Name: STANLEY PADILLA Room #: REG CL Dora#: [id number] Admission: 10/29/19 Attend Phys: Olive Burnett Discharge: Date of : 70 Report #: [id number] contract is on the chart. Risk assessment tool is low. Functional assessment is 25/70. 7. Recreational drug use, she denies. She is not a smoker and does not drink alcohol. According to the prescription monitoring system, the patient is filling appropriately with our medications and then did fill that one oxycodone script from her hospitalization. Her morphine milliequivalent for the tramadol, according to the CDC guidelines is 20 MME. There is a recent drug screen that is appropriate. PHYSICAL EXAMINATION: GENERAL: This is alert and orientated 49-year-old female who appears her stated age, placing her current pain score at 3/10. She is a good historian. She is well developed and well nourished. HEENT: Normocephalic, atraumatic. Extraocular eye muscles are intact. She is wearing a mask. ABDOMEN: She has tenderness in her left upper quadrant that is radiating towards her back. She has hyperactive bowel sounds present today. IMPRESSION: 1. Chronic abdominal pain with recurrent chronic pancreatitis and stents. 2. Management of tramadol under written opioid agreement. We reviewed the fact that opiate medications are being used to provide analgesia adequate to support activities of daily living, not attempting to achieve a specific pain score on the 0-10 Visual Analog Scale. The current opiate medications are providing sufficient analgesia to allow the patient to participate in activities of daily living. The patient is not exhibiting any aberrant behavior suggestive of drug diversion. The patient is not having any adverse reactions to medications. The patient is not suffering from daytime somnolence or mental acuity changes. The patient is managing opiate-induced constipation with appropriate irwa-xgj-nnzloty agents and dietary considerations. The patient was counseled on concern for caution with operating a motor vehicle while using opiate medications. PLAN: 1. We discussed treatment options with the patient today. The patient finds her tramadol very beneficial in controlling her usual pain, though she has had a bout of pancreatitis again with recent stent placement, was given oxycodone 5 mg tablets. I explained to the patient, since she reported they were too strong she may cut those in half and see if that is beneficial if she does have another bout of pancreatitis when her stents are removed in November. The patient verbalizes understanding. She does have plenty of those medications left. So I instructed her not to fill another prescription with her next hospitalization. [facility] [address] [place] [address] PAIN MANAGEMENT CONSULTATION Name: STANLEY PADILLA Room #: REG [facility] John#: [id number] Admission: 10/29/19 Attend Phys: Olive Burnett Discharge: Date of : 70 Report #: [id number] 2. The patient is seen in collaboration with Dr. Amaury Breaux today. The patient will return in 3 months or as needed. <ELECTRONICALLY SIGNED> By: Olive Burnett 10/30/19 1305 [id number] [id number] Olive Burnett /nt
== END ==
LOC: PAIN 06:59
PROVIDERS: ATTEND Clinical Nurse Specialist Adult Health
DX: K85.90 Acute pancreatitis without necrosis or infection, unspecified (principal); F11.20 Opioid dependence, uncomplicated; Z88.8 Allergy status to other drugs, medicaments and biological substances; Z79.899 Other long term (current) drug therapy

== ENCOUNTER → 2020-01-28 | Outpatient (CLI) | payer OTHER ==
[~2020-01-28] VITALS: Ht 162.6 cm; Wt 90.6 kg
[2020-01-28 09:52] VITALS: BP 131/92
--- NOTE | 2020-01-28 10:05 | NUR ---
Pain Clinic Assessment: 1. History of Osteoarthritis: NONE History of Rheumatoid Arthritis: DENIES 2. Height: 5 ft. 4 in. 162.6 cm. Weight: 199.8 lb. oz. 90.629 kg. Patient's BMI: 34.3 3. Vital Signs: BP: 131/92 Pulse: 73 Resp: 16 Temp: 02 Sat: 97 ECG Mon: 4. Pain Intensity: 4 TO 7 WITHOUT MED 5. Fall Risk: Dizziness: N Needs help standing or walking: N Fallen in the last 3 months: N Fall risk comments: FELL ON ICE A FEW MONTHS AGO 6. Patient on Blood Thinner: None 7. History of Hypertension: N 8. Opioid Therapy greater than 6 weeks: Y Opiate Contract Signed: 09/13/11 9. Risk Assessment Tool Provided: 2-LOW 10. Functional Assessment Tool: 11. Recreational Drug Use: Never Drug Type: Tobacco Use: Never Smoker Tobacco Type: Amount or Packs/day: How Many Years: Alcohol Use: No Frequency: Quant:
--- NOTE | 2020-01-29 07:52 | HPC ---
[facility] [place] [address] PAIN MANAGEMENT CONSULTATION Name: STANLEY PADILLA [facility] [id number] Admission: 01/28/20 Attend Phys: Olive Burnett Discharge: Date of : 70 Report #: [id number] THIS REPORT FOR: cc: Chucky Evans Ahmad W. DO Hocker, Amanda CNS ~ DATE OF SERVICE: 01/28/2020 CHIEF COMPLAINT: Chronic abdominal pain related to pancreatitis. HISTORY OF PRESENT ILLNESS: This is a very pleasant 49-year-old female who returns to the pain clinic today for refill of her medications. She reports having her bile duct stent removed on Tuesday. She was happy to hear that it was open quite significantly from the stent and is hopeful to have this out for at least the next 3 months. She will have another MRCP at that time to reevaluate. The patient reports she spent one night in the hospital, her pain was increased throughout the weekend, but today she believes her pain is much improved, rating at a 4 without medications. Her pain is usually associated in her upper abdomen. It is an aching, burning pain that is associated with eating or bending over. She believes that the medication of tramadol has been beneficial as well as following a special diet. She is to increase her protein intake and continue on a low-fat diet to see if this is beneficial in keeping her bile duct open and eat several small meals a day. Overall, she is pleased with the outcome of the most recent stent procedure. ALLERGIES: HYDROMORPHONE, MORPHINE, TOPAMAX, AND LEVOFLOXACIN. CURRENT LIST OF MEDICATIONS: Tramadol 50 mg q.i.d. p.r.n., trazodone, omeprazole, potassium, Linzess, duloxetine, multivitamin, Zofran, and MiraLax. PQRS: 1. She is negative for osteoarthritis and rheumatoid arthritis. 2. Height is 5 feet 4 inches, weight is 199, BMI is 34. 3. Vital signs 131/92, pulse is 73, respirations 16, oxygen sat is 97%. 4. Pain score is 4/10. 5. Denies dizziness, does not need help walking or standing, has not fallen in the last 3 months. 6. The patient is not on blood thinners or medicine for hypertension. 7. Opioid therapy is greater than 6 weeks; therefore, an opioid signed contract is on the chart. Risk assessment is low. Functional assessment is 25/70. 8. Recreational drug use, she denies. She is not a smoker and does not drink alcohol. According to the prescription monitoring system, she is filling appropriately. Her morphine milliequivalent is 20 MME or below depending on her usage. There is a drug screen on the chart that was appropriate for her medications. We will [address] [address] PAIN MANAGEMENT CONSULTATION Name: STANLEY PADILLA Room #: REG [facility] Darrick.#: [id number] Admission: 01/28/20 Attend Phys: Olive Burnett Discharge: Date of : 70 Report #: [id number] check this in the near future at her next visit. PHYSICAL EXAMINATION: GENERAL: This is alert and orientated 49-year-old who appears her stated age, placing her current pain score 4/10 today. She is a good historian. HEENT: Normocephalic, atraumatic. Extraocular eye muscles are intact. She is wearing a mask. Her speech is fluent. ABDOMEN: Tenderness in the left upper quadrant is present with active bowel sounds. IMPRESSION: 1. Chronic abdominal pain with recurrent chronic pancreatitis and stent placement with recent removal. 2. Management of opioid medications under written agreement. We reviewed the fact that opiate medications are being used to provide analgesia adequate to support activities of daily living, not attempting to achieve a specific pain score on the 0-10 Visual Analog Scale. The current opiate medications are providing sufficient analgesia to allow the patient to participate in activities of daily living. The patient is not exhibiting any aberrant behavior suggestive of drug diversion. The patient is not having any adverse reactions to medications. The patient is not suffering from daytime somnolence or mental acuity changes. The patient is managing opiate-induced constipation with appropriate fwes-juo-kgzlsmn agents and dietary considerations. The patient was counseled on concern for caution with operating a motor vehicle while using opiate medications. A physical exam was performed and the patient's functional status was evaluated. All patients with back pain were advised against the bed rest greater than 4 days and were advised to return to normal activities. Pain score assessment was noted and the treatment plan was reviewed with the patient. All current medications, both prescribed and OTC were reviewed and reconciled on the electronic medical record. Tobacco screening was accomplished and smoking cessation was advised when indicated. BMI was noted and diet/exercise modification was recommended for all patients following outside normal parameters. I reviewed with the patient today their responsibilities to safeguard prescription medications, reviewed their responsibility to utilize medications only as prescribed by the physician. They are to seek and receive pain medications only from 1 physician group ( [facility]). They are to use 1 pharmacy and keep the clinic informed if they change pharmacies. Their responsibilities include making followup visits in a timely fashion and to avoid abrupt discontinuation of medication usage. Their responsibilities further include bringing their medications (bottles from the pharmacy with residual pills) to the visit for possible confirmation of pill counts and the patient [facility] [address] [place] [address] PAIN MANAGEMENT CONSULTATION Name: STANLEY PADILLA Room #: REG [facility]#: [id number] Admission: 01/28/20 Attend Phys: Olive Burnett Discharge: Date of : 70 Report #: [id number] understands it is their responsibility to submit to random drug screens to ensure both that the medications prescribed are present, and that no other controlled substances are present. All prescriptions provided today were generated electronically. PLAN: 1. We discussed treatment options with the patient today. She believes that the tramadol has been beneficial in controlling her pain, utilizing 2-4 tablets a day depending on the severity. We will continue her on this medication and have Dr. Breaux send electronically to [facility] tramadol 50 mg, #120, with 2 refills. 2. The patient recently had her stent removed and is adjusting her diet accordingly trying to eat 6 small meals a day with increased protein. She is hopeful that by following this diet she will not need as many stent placements. She will have an MRCP performed in 3 months to monitor her scar adhesions that deformed between stent placements. 3. The patient will follow up in 3 months. At that time, we will perform a random drug screen on her. The patient is seen today in collaboration with Dr. Breaux. <ELECTRONICALLY SIGNED> By: Olive Burnett 01/29/20 [id number] 1235 Olive joshi
== END ==
LOC: PAIN 06:55
PROVIDERS: ATTEND Clinical Nurse Specialist Adult Health
DX: K86.1 Other chronic pancreatitis (principal); G89.29 Other chronic pain; Z79.891 Long term (current) use of opiate analgesic

== ENCOUNTER → 2020-04-28 | Outpatient (CLI) | payer OTHER ==
[~2020-04-28] VITALS: Ht 162.6 cm; Wt 87.6 kg
[2020-04-28 09:04] VITALS: BP 136/92
--- NOTE | 2020-04-28 09:11 | NUR ---
Pain Clinic Assessment: 1. History of Osteoarthritis: NONE History of Rheumatoid Arthritis: DENIES 2. Height: 5 ft. 4 in. 162.6 cm. Weight: 193.2 lb. oz. 87.635 kg. Patient's BMI: 33.1 3. Vital Signs: BP: 136/92 Pulse: 68 Resp: 14 Temp: 02 Sat: 98 ECG Mon: 4. Pain Intensity: 4-6 5. Fall Risk: Dizziness: N Needs help standing or walking: N Fallen in the last 3 months: N Fall risk comments: FELL ON ICE A FEW MONTHS AGO 6. Patient on Blood Thinner: None 7. History of Hypertension: N 8. Opioid Therapy greater than 6 weeks: Y Opiate Contract Signed: 09/13/11 9. Risk Assessment Tool Provided: 2-LOW 10. Functional Assessment Tool: 11. Recreational Drug Use: Never Drug Type: Tobacco Use: Never Smoker Tobacco Type: Amount or Packs/day: How Many Years: Alcohol Use: No Frequency: Quant:
== END ==
LOC: PAIN 08:48
PROVIDERS: ATTEND Clinical Nurse Specialist Adult Health
DX: K86.1 Other chronic pancreatitis (principal); Z79.891 Long term (current) use of opiate analgesic; Z79.899 Other long term (current) drug therapy; Z88.5 Allergy status to narcotic agent; Z88.1 Allergy status to other antibiotic agents

== ENCOUNTER → 2020-07-28 | Outpatient (CLI) | payer OTHER ==
[~2020-07-28] VITALS: Ht 162.6 cm; Wt 90.3 kg
[2020-07-28 09:16] VITALS: BP 162/96
--- NOTE | 2020-07-28 09:20 | NUR ---
Pain Clinic Assessment: 1. History of Osteoarthritis: NONE History of Rheumatoid Arthritis: DENIES 2. Height: 5 ft. 4 in. 162.6 cm. Weight: 199.0 lb. oz. 90.266 kg. Patient's BMI: 34.1 3. Vital Signs: BP: 162/96 Pulse: 77 Resp: 16 Temp: 02 Sat: 99 ECG Mon: 4. Pain Intensity: 5 5. Fall Risk: Dizziness: N Needs help standing or walking: N Fallen in the last 3 months: N Fall risk comments: FELL ON ICE A FEW MONTHS AGO 6. Patient on Blood Thinner: None 7. History of Hypertension: N 8. Opioid Therapy greater than 6 weeks: Y Opiate Contract Signed: 09/13/11 9. Risk Assessment Tool Provided: 2-LOW 10. Functional Assessment Tool: 11. Recreational Drug Use: Never Drug Type: Tobacco Use: Never Smoker Tobacco Type: Amount or Packs/day: How Many Years: Alcohol Use: No Frequency: Quant:
== END ==
LOC: PAIN 07:09
PROVIDERS: ATTEND Anesthesiology Pain Medicine
DX: K86.1 Other chronic pancreatitis (principal); Z88.1 Allergy status to other antibiotic agents; Z88.5 Allergy status to narcotic agent; Z79.891 Long term (current) use of opiate analgesic; Z79.899 Other long term (current) drug therapy

== ENCOUNTER → 2020-10-27 | Outpatient (CLI) | payer OTHER ==
[~2020-10-27] VITALS: Ht 162.6 cm; Wt 88.1 kg
[2020-10-27 09:46] VITALS: BP 154/88
--- NOTE | 2020-10-27 10:08 | NUR ---
Pain Clinic Assessment: 1. History of Osteoarthritis: NONE History of Rheumatoid Arthritis: DENIES 2. Height: 5 ft. 4 in. 162.6 cm. Weight: 194.2 lb. oz. 88.089 kg. Patient's BMI: 33.3 3. Vital Signs: BP: 154/88 Pulse: 73 Resp: 16 Temp: 02 Sat: 98 ECG Mon: 4. Pain Intensity: 4/AVG 6 TODAY 5. Fall Risk: Dizziness: N Needs help standing or walking: N Fallen in the last 3 months: N Fall risk comments: FELL ON ICE A FEW MONTHS AGO 6. Patient on Blood Thinner: None 7. History of Hypertension: N 8. Opioid Therapy greater than 6 weeks: Y Opiate Contract Signed: 09/13/11 9. Risk Assessment Tool Provided: 2-LOW 10. Functional Assessment Tool: 11. Recreational Drug Use: Never Drug Type: Tobacco Use: Never Smoker Tobacco Type: Amount or Packs/day: How Many Years: Alcohol Use: No Frequency: Quant:
== END ==
LOC: PAIN 08:15
PROVIDERS: ATTEND Clinical Nurse Specialist Adult Health
DX: G89.29 Other chronic pain (principal); K86.1 Other chronic pancreatitis

== ENCOUNTER → 2021-01-26 | Outpatient (CLI) | payer OTHER ==
[~2021-01-26] VITALS: Ht 162.6 cm; Wt 84.5 kg
[2021-01-26 09:08] VITALS: BP 133/93
--- NOTE | 2021-01-26 09:13 | NUR ---
Pain Clinic Assessment: 1. History of Osteoarthritis: NONE History of Rheumatoid Arthritis: DENIES 2. Height: 5 ft. 4 in. 162.6 cm. Weight: 186.2 lb. oz. 84.460 kg. Patient's BMI: 31.9 3. Vital Signs: BP: 133/93 Pulse: 74 Resp: 18 Temp: 02 Sat: 97 ECG Mon: 4. Pain Intensity: 4 5. Fall Risk: Dizziness: N Needs help standing or walking: N Fallen in the last 3 months: N Fall risk comments: FELL ON ICE A FEW MONTHS AGO 6. Patient on Blood Thinner: None 7. History of Hypertension: N 8. Opioid Therapy greater than 6 weeks: Y Opiate Contract Signed: 09/13/11 9. Risk Assessment Tool Provided: 2-LOW 10. Functional Assessment Tool: 11. Recreational Drug Use: Never Drug Type: Tobacco Use: Never Smoker Tobacco Type: Amount or Packs/day: How Many Years: Alcohol Use: No Frequency: Quant:
== END ==
LOC: PAIN 08:04
PROVIDERS: ATTEND Clinical Nurse Specialist Adult Health
DX: G89.29 Other chronic pain (principal); K86.1 Other chronic pancreatitis; R10.9 Unspecified abdominal pain; Z88.8 Allergy status to other drugs, medicaments and biological substances; Z79.899 Other long term (current) drug therapy